=== PATIENT | female | born 1935 ===

== ENCOUNTER → 2019-07-17 11:01 | Outpatient (BNVA) | payer MEDICARE, SELFPAY | PROVIDERS: Family Provider Family Medicine; PCP Family Medicine; Referring Provider Internal Medicine Addiction Medicine; Visit Provider Internal Medicine Rheumatology | DX: M05.79 Rheumatoid arthritis with rheumatoid factor of multiple sites without organ or systems involvement (principal); Z79.899 Other long term (current) drug therapy; M79.7 Fibromyalgia; I10 Essential (primary) hypertension | CPT/HCPCS: 99213 ==

== ENCOUNTER 2020-05-13 10:17 | Outpatient (CLI) | payer MEDICARE, SELFPAY ==
[2020-05-13 11:28] VITALS: BP 173/76; PULSE 61; RESP 18; TEMP 36.3; O2SAT 96
[2020-05-13] MEDS: denosumab 60 mg SDV SUBCUT (11:35)
[2020-05-13 12:05] VITALS: BP 175/73; PULSE 57; RESP 16; TEMP 36.4
[2020-05-13 12:41] VITALS: BMI 29.8
== END 2020-05-13 10:18 | disposition home or self-care (01) ==
LOC: RHEOACUTE 10:18
PROVIDERS: Family Provider Family Medicine; PCP Family Medicine; Visit Provider Internal Medicine Rheumatology
DX: M05.79 Rheumatoid arthritis with rheumatoid factor of multiple sites without organ or systems involvement (principal); Z79.899 Other long term (current) drug therapy; R09.89 Other specified symptoms and signs involving the circulatory and respiratory systems; E55.9 Vitamin D deficiency, unspecified; M79.7 Fibromyalgia; M81.0 Age-related osteoporosis without current pathological fracture; M50.30 Other cervical disc degeneration, unspecified cervical region
CPT/HCPCS: 96372; 99214; J0897

== ENCOUNTER → 2020-09-29 14:16 | Outpatient (BNVA) | payer MEDICARE, SELFPAY | PROVIDERS: Family Provider Family Medicine; PCP Family Medicine; Visit Provider Internal Medicine Rheumatology | DX: M05.9 Rheumatoid arthritis with rheumatoid factor, unspecified (principal); M80.021A Age-related osteoporosis with current pathological fracture, right humerus, initial encounter for fracture; Z79.899 Other long term (current) drug therapy; M50.30 Other cervical disc degeneration, unspecified cervical region; M79.7 Fibromyalgia; K21.9 Gastro-esophageal reflux disease without esophagitis | CPT/HCPCS: 99214 ==

== ENCOUNTER 2020-11-11 10:26 | Outpatient (CLI) | payer MEDICARE, SELFPAY ==
[2020-11-11 10:52] VITALS: BP 165/72; PULSE 79; RESP 18; TEMP 36.4; O2SAT 95
[2020-11-11] MEDS: denosumab 60 mg SDV SUBCUT (12:04)
== END 2020-11-11 10:27 | disposition home or self-care (01) ==
LOC: ONCMED 10:28
PROVIDERS: Family Provider Family Medicine; PCP Family Medicine; Visit Provider Internal Medicine Rheumatology
DX: M81.0 Age-related osteoporosis without current pathological fracture (principal)
CPT/HCPCS: 96372; J0897

== ENCOUNTER 2021-06-17 09:49 | Outpatient (CLI) | payer MEDICARE, SELFPAY ==
[2021-06-17 11:07] LABS: Calcium 9.5 mg/dL (8.5-10.5)
[2021-06-17 11:21] VITALS: BP 168/79; PULSE 73; RESP 18; TEMP 36.4; O2SAT 96
[2021-06-17] MEDS: denosumab 60 mg SDV SUBCUT (11:30)
[2021-06-17 11:39] VITALS: BP 157/70; PULSE 67; RESP 18; TEMP 36.7; O2SAT 95
[2021-06-17 13:21] LABS: 25 Hydroxy Vitamin D 35 ng/mL (30-100)
== END 2021-06-17 09:50 | disposition home or self-care (01) ==
PROVIDERS: PCP Family Medicine; Visit Provider Internal Medicine Rheumatology
DX: M81.0 Age-related osteoporosis without current pathological fracture (principal); Z79.899 Other long term (current) drug therapy
CPT/HCPCS: 36415; 82040; 82306; 82310; 82565; 96372; J0897

== ENCOUNTER → 2021-11-25 13:52 | Outpatient (BNVA) | payer MEDICARE, SELFPAY | PROVIDERS: PCP Family Medicine; Visit Provider Internal Medicine Rheumatology | DX: M05.79 Rheumatoid arthritis with rheumatoid factor of multiple sites without organ or systems involvement (principal); M81.0 Age-related osteoporosis without current pathological fracture; Z79.899 Other long term (current) drug therapy; K21.9 Gastro-esophageal reflux disease without esophagitis; M50.30 Other cervical disc degeneration, unspecified cervical region; M79.7 Fibromyalgia; F32.A Depression, unspecified; Z71.89 Other specified counseling | CPT/HCPCS: 99214 ==

== ENCOUNTER 2021-12-22 09:46 | Outpatient (CLI) | payer MEDICARE, SELFPAY ==
[2021-12-22 10:32] LABS: Albumin Level 4.3 g/dL (3.5-5.2); Calcium 9.8 mg/dL (8.5-10.5)
[2021-12-22 10:40] VITALS: BP 181/84; PULSE 80; RESP 18; TEMP 36.3; O2SAT 94
[2021-12-22] MEDS: denosumab 60 mg SDV SUBCUT (10:49)
[2021-12-22 11:01] VITALS: BP 164/90; PULSE 78; RESP 18; TEMP 36.3; O2SAT 97
[2021-12-22 11:27] LABS: 25 Hydroxy Vitamin D 86 ng/mL (30-100)
== END 2021-12-22 09:47 | disposition home or self-care (01) ==
PROVIDERS: PCP Family Medicine; Referring Provider Internal Medicine Rheumatology; Visit Provider Internal Medicine Rheumatology
DX: M81.0 Age-related osteoporosis without current pathological fracture (principal)
CPT/HCPCS: 36415; 82040; 82306; 82310; 82565; 96372; J0897

== ENCOUNTER → 2022-05-05 13:05 | Outpatient (BNVA) | payer MEDICARE, SELFPAY | PROVIDERS: PCP Family Medicine; Visit Provider Internal Medicine Rheumatology | DX: M05.79 Rheumatoid arthritis with rheumatoid factor of multiple sites without organ or systems involvement (principal); Z79.899 Other long term (current) drug therapy; Z71.89 Other specified counseling; M81.0 Age-related osteoporosis without current pathological fracture; Z87.310 Personal history of (healed) osteoporosis fracture; M50.30 Other cervical disc degeneration, unspecified cervical region; M79.7 Fibromyalgia; F32.A Depression, unspecified; K21.9 Gastro-esophageal reflux disease without esophagitis; I73.00 Raynaud's syndrome without gangrene | CPT/HCPCS: 99214 ==